=== PATIENT | male | born 1970 | race Caucasian/White ===

== ENCOUNTER 2017-11-10 01:01 | Emergency (ER) | payer OTHER ==
[2017-11-10] MEDS: HYDROCODONE/APAP (10/325) TAB PO (02:42)
== END 2017-11-10 03:00 | disposition home or self-care (01) ==
LOC: E/R 01:01
DX: S52.502A Unspecified fracture of the lower end of left radius, initial encounter for closed fracture (principal); F17.210 Nicotine dependence, cigarettes, uncomplicated; Y01.XXXA Assault by pushing from high place, initial encounter
CPT/HCPCS: 29125; 73110-LT; 99283-25